=== PATIENT | male | born 1990 | race Caucasian/White ===

== ENCOUNTER 2016-12-27 23:24 | Emergency (ER) | payer OTHER ==
[~2016-12-27] VITALS: Ht 182.9 cm; Wt 81.8 kg
[2016-12-28 00:44] VITALS: BP 119/74
== END 2016-12-28 00:57 | disposition home or self-care (01) ==
LOC: EMS 23:26
DX: R46.89 Other symptoms and signs involving appearance and behavior (principal); F10.10 Alcohol abuse, uncomplicated; F17.200 Nicotine dependence, unspecified, uncomplicated; Z63.5 Disruption of family by separation and divorce; Y90.9 Presence of alcohol in blood, level not specified
CPT/HCPCS: 99285; 99406